=== PATIENT | female | born 1975 | race Caucasian/White ===

== ENCOUNTER 2017-09-12 14:31 | Emergency (ER) | payer MEDICAID ==
[2017-09-12] MEDS ORDERED: ONDANSETRON 4 MG ODT TABLET SL ONE (14:49)
[2017-09-12] MEDS ORDERED: SUCRALFATE 1 G/10 ML UD PO ONE (14:51)
--- NOTE | 2017-09-12 14:53 | Emergency Department Record ---
History of Present Illness - General Chief complaint: Nausea, Vomiting, Diarrhea Stated complaint: NAUSEA Time Seen by Provider: 09/12/17 14:41 Source: Patient Mode of Arrival: Ambulatory Limitations: No limitations - History of Present Illness Initial comments: The patient states she is here due to a 2 week hx of intermittent nausea, heartburn and abdominal bloating. She denies any pain or any discomfort but she feels like she was . The patient has had her fallopian tubes removed in the past but still has her ovaries and uterus. The patient is basically concerned that she may be . There is no reported CP, SOB, sweating or vomiting. Sometimes food does make the heartburn worse. There is no hx of CONNOR or CP with exertion. MD complaint: Nausea Onset/Timin -: Week(s) Severity: Moderate Severity scale (1-10): 1 Quality: Aching Consistency: Constant - Related Data Home Medications Medication Instructions Recorded Confirmed Last Taken Buspirone HCl [Buspar] 15 mg PO BID 09/12/17 09/12/17 1 Day Ago ~09/11/17 Cetirizine HCl 10 mg PO DAILY 09/12/17 09/12/17 1 Day Ago ~09/11/17 Lisinopril [Prinivil] 10 mg PO DAILY 09/12/17 09/12/17 1 Day Ago ~09/11/17 Vortioxetine Hydrobromide 10 mg PO DAILY 09/12/17 09/12/17 1 Day Ago [Brintellix] ~09/11/17 Previous Rx's Medication Instructions Recorded Omeprazole [Prilosec] 20 mg PO DAILY #30 09/12/17 Allergies Allergy/AdvReac Type Severity Reaction Status Date / Time No Known Drug Allergies Allergy Verified 09/12/17 16:18 Travel Screening - Travel/Exposure Within Last 30 Days Have you traveled within the last 30 days?: No - Travel/Exposure Within Last Year Have you traveled outside the [place] in the last year?: No - Additonal Travel Details Have you been exposed to anyone with a communicable illness?: No - Travel Symptoms Symptom Screening: None Review of Systems Constitutional: Denies: Chills, Fever Past Medical History - SOCIAL HISTORY Smoking Status: Current every day smoker Alcohol Use: None Drug Use: None - RESPIRATORY Hx Respiratory Disorders: No - CARDIOVASCULAR Hx Cardio Disorders: Yes Hx Hypertension: Yes ( induced) - NEURO Hx Neuro Disorders: No - GI Hx GI Disorders: No - Hx Genitourinary Disorders: No - ENDOCRINE Hx Endocrine Disorders: No - MUSCULOSKELETAL Hx Musculoskeletal Disorders: Yes Comment:: R knee pain - PSYCH Hx Psych Problems: Yes Hx Anxiety: Yes Comment:: mood problems - HEMATOLOGY/ONCOLOGY Hx Hematology/Oncology Disorders: No Family Medical History Any Significant Family History?: Yes Family Hx Comment (NOT TO BE USED IN PLACE OF ITEMS BELOW): Grandfather-Janki 's. Aunt w/MS Hx Cancer: Father Hx HTN: Father, Mother Hx Resp Disorders: Grandparents Physical Exam - General General Appearance: Alert, Oriented x3, Cooperative, No acute distress - Head Head exam: Atraumatic, Normocephalic, Normal inspection - Eye Eye exam: Normal appearance, PERRL - Neck Neck exam: Normal inspection, Full ROM. negative: Tenderness - Respiratory Respiratory exam: Normal lung sounds bilaterally. negative: Respiratory distress - Cardiovascular Cardiovascular Exam: Regular rate, Normal rhythm, Normal heart sounds - GI/Abdominal GI/Abdominal exam: Soft, Normal bowel sounds. negative: Distended, Rebound, Rigid, Tenderness - Extremities Extremities exam: Normal inspection, Full ROM, Normal capillary refill. negative: Tenderness - Neurological Neurological exam: Alert. negative: Motor sensory deficit Course Vital Signs 09/12/17 14:33 Temperature 97.7 F Pulse Rate 89 Respiratory 18 Rate Blood Pressure 168/85 Pulse Ox 98 - Reevaluation(s) Reevaluation #1: The patient is doing a lot better after the GI cocktail. It completely took her heartburn away. She feels much better and is relieved that she is not . 09/12/17 16:17 Reevaluation #2: The patient is doing very well. I did put a consult in for the GI Specialty clinic and will place the patient on [facility]. 09/12/17 16:43 Medical Decision Making - Data Complexity MDM Data: Labs Ordered and/or Reviewed, EKG Ordered and/or Reviewed - Lab Data Result diagrams: 09/12/17 15:00 09/12/17 15:00 - EKG Data -: EKG Interpreted by Me EKG: No Acute Changes, Normal EKG Disposition Disposition: Discharge Clinical Impression: GERD (gastroesophageal reflux disease) Qualifiers: Esophagitis presence: esophagitis presence not specified Qualified Code(s): K21.9 - Gastro-esophageal reflux disease without esophagitis Disposition: Home, Self-Care Condition: (2) Stable Instructions: Acute Nausea and Vomiting (ED) Additional Instructions: Please take the Prilosec as directed and follow up with the GI clinic when possible. Please also see your family doctor if not better in 3 days. Return to the ER for any worsening symptoms. Prescriptions: Omeprazole [Prilosec] 20 mg PO DAILY #30 cap. Referrals: [facility] Special[facility] [Provider Group] Forms: Patient Portal Access Time of Disposition: 16:42 Quality - Quality Measures Quality Measures: N/A - Blood Pressure Screening View Details: Yes Does Patient Have Any of the Following: No Blood Pressure Classification: Pre-Hypertensive BP Reading Systolic Measurement: 168 Diastolic Measurement: 85 Screening for High Blood Pressure: < Pre-Hypertensive BP, F/U Documented > [ G8950] Pre-Hypertensive Follow-up Interventions: Referral to alternative/primary care provider.
[2017-09-12 15:03] LABS: BASO % 0.2 % (0-6); EOS % 0.3 % (0-6); GRAN % 72.4 % (47-80); HEMATOCRIT 49.8 % (35.0-47.0); HEMOGLOBIN 16.9 gm/dl (11.6-16.0); LYMPH % 20.3 % (16-45); MEAN CELL VOLUME 94.9 fl (81-97); MEAN CORPUSCULAR HGB CONC 33.9 g/dl (32-36); MEAN PLATELET VOLUME 9.9 fl (7.4-10.4); MONO % 6.8 % (0-9); PLATELET COUNT 302 K/uL (130-400); RED BLOOD COUNT 5.25 M/uL (3.80-5.40); RED CELL DISTRIBUTION WIDTH 14.4 % (11.5-14.5); WHITE BLOOD COUNT W/O DIFF 13.8 K/uL (4.2-12.2)
[2017-09-12 15:15] LABS: BLOOD UREA NITROGEN 14 mg/dL (6-20); CREATININE 0.7 mg/dL (0.5-0.9); EST GLOMERULAR FILTRATION RATE > 60 mL/min; MEAN CORPUSCULAR HEMOGLOBIN 32.1 pg (27-33)
[2017-09-12 15:16] LABS: TOTAL PROTEIN 8.1 g/dL (6.6-8.7)
[2017-09-12 15:18] LABS: GLUCOSE,RANDOM 116 mg/dL (74-109)
[2017-09-12 15:20] LABS: ALT/SGPT 32 U/L (<33); AST/SGOT 26 U/L (10.0-35.0)
[2017-09-12 15:21] LABS: ALB/GLOB RATIO 1.2 (1.1-1.8); ALBUMIN 4.4 g/dL (4.0-5.0); ALKALINE PHOSPHATASE 104 U/L (35-104)
[2017-09-12] MEDS ORDERED: MAGNESIUM HYDROXIDE/AL HYDROX 30 ML, LIDOCAINE VISC 2% 200 MG PO ONE ×2 (15:52)
== END 2017-09-12 16:47 | disposition home or self-care (01) ==
LOC: ER 14:31
DX: K21.9 Gastro-esophageal reflux disease without esophagitis (principal); R14.0 Abdominal distension (gaseous); R11.2 Nausea with vomiting, unspecified; R19.7 Diarrhea, unspecified; F17.210 Nicotine dependence, cigarettes, uncomplicated
CPT/HCPCS: 80053; 84484; 84703; 85025; 93005; 93010; 99284

== ENCOUNTER 2017-10-13 13:20 | Emergency (ER) | payer MEDICAID ==
--- NOTE | 2017-10-13 13:49 | Emergency Department Record ---
History of Present Illness - General Chief complaint: Eye Problem Stated complaint: BUBBLE ON L EYE Time Seen by Provider: 10/13/17 13:37 Source: Patient Mode of Arrival: Ambulatory Limitations: No limitations - History of Present Illness Initial comments: 42 yo female presents with left eye clear bubble that she has noted for about a week. The patient denies any changes in vision. She does not wear any contacts or glasses. No redness, drainage, pus, tearing. The area of concern is the later left eye. She does take allergy medication for seasonal allergies. Onset/Timin -: Days(s) Onset Description: Gradual Location: Left eye Place: Home If Injury: None Eye Symptoms: Pain Severity scale (1-10): 8 If Pain, Quality: Aching Consistency: Constant Associated Symptoms: None Treatments Prior to Arrival: None - Related Data Previous Rx's Medication Instructions Recorded Omeprazole [Prilosec] 20 mg PO DAILY #30 mireya. 09/12/17 Naphazoline HCl/Pheniramine 15 ml OP Q6H #1 drops 10/13/17 [Naphcon-A Eye Drops] Allergies Allergy/AdvReac Type Severity Reaction Status Date / Time No Known Drug Allergies Allergy Verified 09/12/17 16:18 Travel Screening - Travel/Exposure Within Last 30 Days Have you traveled within the last 30 days?: No Review of Systems Constitutional: Denies: Chills, Fever, Malaise, Weakness Eyes: Reports: Other (cyst). Denies: Eye discharge, Eye pain, Photophobia, Vision change ENT: Denies: Congestion, Throat pain Respiratory: Denies: Cough Cardiovascular: Denies: Chest pain, Syncope Endocrine: Denies: Fatigue Gastrointestinal: Denies: Abdominal pain, Diarrhea, Nausea, Vomiting Genitourinary: Denies: Dysuria Musculoskeletal: Denies: Arthralgia, Back pain, Myalgia Skin: Denies: Bruising, Change in color, Rash Neurological: Denies: Headache, Numbness, Weakness Psychiatric: Denies: Anxiety Hematological/Lymphatic: Denies: Easy bleeding, Easy bruising, Swollen glands Past Medical History - SOCIAL HISTORY Smoking Status: Current every day smoker Alcohol Use: None Drug Use: None - RESPIRATORY Hx Respiratory Disorders: No - CARDIOVASCULAR Hx Cardio Disorders: Yes Hx Hypertension: Yes ( induced) - NEURO Hx Neuro Disorders: No - GI Hx GI Disorders: No - Hx Genitourinary Disorders: No - ENDOCRINE Hx Endocrine Disorders: No - MUSCULOSKELETAL Hx Musculoskeletal Disorders: Yes Comment:: R knee pain - PSYCH Hx Psych Problems: Yes Hx Anxiety: Yes Comment:: mood problems - HEMATOLOGY/ONCOLOGY Hx Hematology/Oncology Disorders: No Family Medical History Any Significant Family History?: Yes Family Hx Comment (NOT TO BE USED IN PLACE OF ITEMS BELOW): Grandfather-Janki 'lee ann. Aunt w/MS Hx Cancer: Father Hx HTN: Father, Mother Hx Resp Disorders: Grandparents Physical Exam - General General Appearance: Alert, Oriented x3, Cooperative, No acute distress Limitations: No limitations - Head Head exam: Normal inspection - Eye Eye exam: Normal appearance, PERRL, EOMI. negative: Conjunctival injection, Periorbital swelling, Periorbital tenderness, Scleral icterus Pupils: Normal accommodation, Other (small approximately 1-2mm clear cyst like structure, no redness, pus, are blood, no FB). negative: Irregular, Unequal - ENT ENT exam: Normal exam Ear exam: Normal external inspection Nasal Exam: Normal inspection Mouth exam: Normal external inspection Teeth exam: Normal inspection Course Vital Signs 10/13/17 13:35 Temperature 98.0 F Pulse Rate [ 104 H Pulse Ox Probe] Respiratory 18 Rate Blood Pressure 150/90 [Left Arm] Pulse Ox 97 - Reevaluation(s) Reevaluation #1: Slit lamp was performed No biostain uptake There is a small clear cyst like structure on the left lateral conjunctiva No pus No hemorrhage Normal AC that is clear. No hyphema Examination is likely a conjunctival cyst Disposition Disposition: Discharge Clinical Impression: Conjunctival cyst of left eye Disposition: Home, Self-Care Condition: (1) Good Instructions: Eye Pain (ED) Additional Instructions: Call the number provided for a follow up eye examination for the conjuctival cyst on the surface of your left eye Return if worse, fever, red, pus, drainage or vision changes. Prescriptions: Naphazoline HCl/Pheniramine [Naphcon-A Eye Drops] 15 ml OP Q6H #1 drops Referrals: NIXON PHILLIPS [MEDICAL DOCTOR] - [facility] Special[facility] [Provider Group] Forms: Patient Portal Access Time of Disposition: 13:54 Quality - Quality Measures Quality Measures: N/A - Blood Pressure Screening Does Patient Have Any of the Following: Active Dx of HTN Blood Pressure Classification: Hypertensive Reading Systolic Measurement: 150 Diastolic Measurement: 90 Screening for High Blood Pressure: Patient Exclusion, Hx of HTN [G9724]
== END 2017-10-13 14:18 | disposition home or self-care (01) ==
LOC: ER 13:20
DX: H11.442 Conjunctival cysts, left eye (principal); F17.210 Nicotine dependence, cigarettes, uncomplicated
CPT/HCPCS: 99283

== ENCOUNTER 2017-10-19 20:41 | Emergency (ER) | payer MEDICAID ==
--- NOTE | 2017-10-19 21:15 | Emergency Department Record ---
History of Present Illness - General Chief complaint: Eye Problem Stated complaint: CYST LT EYE Time Seen by Provider: 10/19/17 20:58 Source: Patient Mode of Arrival: Ambulatory Limitations: No limitations - History of Present Illness Initial comments: pt was seen in ed for cyst on eye and was sent to opthamologist who popped 3 cysts. now she has another. she has an appt 11/25 with opthamologist chief complaint: Other -: Days(s) Onset Description: Gradual Location: Left eye If Injury: None Eye Symptoms: Burning, Blurry vision Severity scale (1-10): 6 If Pain, Quality: Burning Consistency: Constant Associated Symptoms: None Treatments Prior to Arrival: Other - Related Data Visual acuity (L) = 20/: 70 Visual acuity (R) = 20/: 50 With correction: No Previous Rx's Medication Instructions Recorded Omeprazole [Prilosec] 20 mg PO DAILY #30 09/12/17 Naphazoline HCl/Pheniramine 15 ml OP Q6H #1 drops 10/13/17 [Naphcon-A Eye Drops] Allergies Allergy/AdvReac Type Severity Reaction Status Date / Time No Known Drug Allergies Allergy Verified 09/12/17 16:18 Travel Screening - Travel/Exposure Within Last 30 Days Have you traveled within the last 30 days?: No - Travel Symptoms Symptom Screening: None Review of Systems Reviewed: No additional complaints except as noted below Constitutional: Reports: As per HPI. Denies: Chills, Fever, Malaise, Night sweats, Weakness, Weight change Eyes: Reports: As per HPI. Denies: Eye discharge, Eye pain, Photophobia, Vision change ENT: Reports: As per HPI. Denies: Congestion, Dental pain, Ear pain, Epistaxis , Hearing loss, Throat pain Respiratory: Reports: As per HPI. Denies: Cough, Dyspnea, Hemoptysis, Stridor, Wheezes Cardiovascular: Reports: As per HPI. Denies: Arrhythmia, Chest pain, Dyspnea on exertion, Edema, Murmurs, Orthopnea, Palpitations, Paroxysmal nocturnal dyspnea, Rheumatic Fever, Syncope Endocrine: Reports: As per HPI. Denies: Fatigue, Heat or cold intolerance, Polydipsia, Polyuria Gastrointestinal: Reports: As per HPI. Denies: Abdominal pain, Constipation, Diarrhea, Hematemesis, Hematochezia, Melena, Nausea, Vomiting Genitourinary: Reports: As per HPI. Denies: Abnormal menses, Discharge, Dyspareunia, Dysuria, Frequency, Hematuria, Incontinence, Retention, Urgency Musculoskeletal: Reports: As per HPI. Denies: Arthralgia, Back pain, Gout, Joint swelling, Myalgia, Neck pain Skin: Reports: As per HPI. Denies: Bruising, Change in color, Change in hair/ nails, Lesions, Pruritus, Rash Neurological: Reports: As per HPI. Denies: Abnormal gait, Confusion, Headache, Numbness, Paresthesias, Seizure, Tingling, Tremors, Vertigo, Weakness Psychiatric: Reports: As per HPI. Denies: Anxiety, Auditory hallucinations, Depression, Homicidal thoughts, Suicidal thoughts, Visual hallucinations Hematological/Lymphatic: Reports: As per HPI. Denies: Anemia, Blood Clots, Easy bleeding, Easy bruising, Swollen glands Past Medical History - SOCIAL HISTORY Smoking Status: Current every day smoker - RESPIRATORY Hx Respiratory Disorders: No - CARDIOVASCULAR Hx Cardio Disorders: Yes Hx Hypertension: Yes ( induced) - NEURO Hx Neuro Disorders: No - GI Hx GI Disorders: No - Hx Genitourinary Disorders: No - ENDOCRINE Hx Endocrine Disorders: No - MUSCULOSKELETAL Hx Musculoskeletal Disorders: Yes Comment:: R knee pain - PSYCH Hx Psych Problems: Yes Hx Anxiety: Yes Comment:: mood problems - HEMATOLOGY/ONCOLOGY Hx Hematology/Oncology Disorders: No Family Medical History Any Significant Family History?: Yes Family Hx Comment (NOT TO BE USED IN PLACE OF ITEMS BELOW): Grandfather-Janki 's. Aunt w/MS Hx Cancer: Father Hx HTN: Father, Mother Hx Resp Disorders: Grandparents Physical Exam - General General Appearance: Alert, Oriented x3, Cooperative, No acute distress - Head Head exam: Normal inspection - Eye Eye exam: Normal appearance, PERRL, EOMI, Other (tiny cyst l lateral conjunctiva ) Pupils: Normal accommodation With correction: No - ENT ENT exam: Normal exam, Mucous membranes moist, Normal external ear exam, Normal orophraynx Ear exam: Normal external inspection. negative: External canal tenderness Nasal Exam: Normal inspection. negative: Discharge, Sinus tenderness Mouth exam: Normal external inspection, Tongue normal Teeth exam: Normal inspection. negative: Dental caries Throat exam: Normal inspection. negative: Tonsillar erythema, Tonsillar exudate - Neck Neck exam: Normal inspection, Full ROM. negative: Tenderness - Respiratory Respiratory exam: Normal lung sounds bilaterally. negative: Respiratory distress - Cardiovascular Cardiovascular Exam: Regular rate, Normal rhythm, Normal heart sounds - GI/Abdominal GI/Abdominal exam: Soft, Normal bowel sounds. negative: Tenderness - Rectal Rectal exam: Deferred - exam: Deferred - Extremities Extremities exam: Normal inspection, Full ROM, Normal capillary refill. negative: Tenderness - Back Back exam: Reports: Normal inspection, Full ROM. Denies: Muscle spasm, Rash noted, Tenderness - Neurological Neurological exam: Alert, CN II-XII intact, Normal gait, Oriented X3 - Psychiatric Psychiatric exam: Normal affect, Normal mood - Skin Skin exam: Dry, Intact, Normal color, Warm Course Vital Signs 10/19/17 20:49 Temperature 97.7 F Pulse Rate [ 103 H Pulse Ox Probe] Respiratory 24 Rate Blood Pressure 142/70 [Left Arm] Pulse Ox 99 - Reevaluation(s) Reevaluation #1: 10/19/17 21:19 it was explained to pt that we do not pop cysts on eyes in the ed. she was given names of ophthamologists that accept her insurance and advised to get in with them Disposition Disposition: Discharge Clinical Impression: Conjunctival cyst Qualifiers: Laterality: left Qualified Code(s): H11.442 - Conjunctival cysts, left eye Disposition: Home, Self-Care Condition: (1) Good Instructions: Eye Pain (ED) Additional Instructions: follow up with ophthamologist. call to get in sooner. continue current drops. return sooner if worse. Forms: Patient Portal Access Quality - Quality Measures Quality Measures: N/A - Blood Pressure Screening Does Patient Have Any of the Following: No Blood Pressure Classification: Hypertensive Reading Systolic Measurement: 142 Diastolic Measurement: 70 Screening for High Blood Pressure: < First Hypertensive BP, F/U Documented > [ G8950] First Hypertensive Follow-up Interventions: Follow-up with rescreen GT 1 day and LT 4 weeks.
== END 2017-10-19 21:34 | disposition home or self-care (01) ==
LOC: ER 20:41
DX: H11.442 Conjunctival cysts, left eye (principal); I10 Essential (primary) hypertension; F17.210 Nicotine dependence, cigarettes, uncomplicated
CPT/HCPCS: 99282

== ENCOUNTER 2017-11-07 13:59 | Emergency (ER) | payer MEDICAID ==
--- NOTE | 2017-11-07 14:25 | Emergency Department Record ---
History of Present Illness - General Chief complaint: ENT Stated complaint: SORE THROAT AND EAR PAIN Time Seen by Provider: 11/07/17 14:14 Source: Patient Mode of Arrival: Ambulatory Limitations: No limitations - History of Present Illness Initial comments: The patient is here due to a "raw" sore throat for a day and a half. She also has had nasal congestion and head congestion. The patient does have a mild cough but no SOB, SHYAM, MILTON, CP, or fever. MD complaint: Sore throat Onset/Timin -: Days(s) Location: Throat Severity: Moderate Severity scale (1-10): 8 Improves with: Pressure Worsens with: Swallowing Associated Symptoms: Other - Related Data Previous Rx's Medication Instructions Recorded Omeprazole [Prilosec] 20 mg PO DAILY #30 cap. 09/12/17 Naphazoline HCl/Pheniramine 15 ml OP Q6H #1 drops 10/13/17 [Naphcon-A Eye Drops] Benzonatate [Tessalon] 1 cap PO Q8H PRN #20 cap 11/07/17 Prednisone [Prednisone 20Mg] 40 mg PO DAILY #10 tab 11/07/17 Allergies Allergy/AdvReac Type Severity Reaction Status Date / Time No Known Drug Allergies Allergy Verified 11/07/17 14:19 Travel Screening - Travel/Exposure Within Last 30 Days Have you traveled within the last 30 days?: No - Travel/Exposure Within Last Year Have you traveled outside the [place] in the last year?: No - Additonal Travel Details Have you been exposed to anyone with a communicable illness?: No - Travel Symptoms Symptom Screening: Joint & Muscle Aches Review of Systems Constitutional: Reports: Malaise. Denies: Chills, Fever Eyes: Denies: Eye discharge ENT: Reports: Congestion, Throat pain Respiratory: Reports: Cough. Denies: Dyspnea Past Medical History - SOCIAL HISTORY Smoking Status: Current every day smoker Alcohol Use: None Drug Use: None - RESPIRATORY Hx Respiratory Disorders: No - CARDIOVASCULAR Hx Cardio Disorders: Yes Hx Hypertension: Yes ( induced) - NEURO Hx Neuro Disorders: No - GI Hx GI Disorders: No - Hx Genitourinary Disorders: No - ENDOCRINE Hx Endocrine Disorders: No - MUSCULOSKELETAL Hx Musculoskeletal Disorders: Yes Comment:: R knee pain - PSYCH Hx Psych Problems: Yes Hx Anxiety: Yes Comment:: mood problems - HEMATOLOGY/ONCOLOGY Hx Hematology/Oncology Disorders: No Family Medical History Any Significant Family History?: No Family Hx Comment (NOT TO BE USED IN PLACE OF ITEMS BELOW): Grandfather-Janki 's. Aunt w/MS Hx Cancer: Father Hx HTN: Father, Mother Hx Resp Disorders: Grandparents Physical Exam - General General Appearance: Alert, Oriented x3, Cooperative, No acute distress - Head Head exam: Atraumatic, Normocephalic, Normal inspection - Eye Eye exam: Normal appearance, PERRL, EOMI - ENT ENT exam: TM's normal bilaterally. negative: Normal exam, Normal orophraynx Nasal Exam: Normal inspection. negative: Discharge, Sinus tenderness Throat exam: Tonsillar erythema (mild.). negative: Normal inspection, Tonsillomegaly, Tonsillar exudate, R peritonsillar mass, L peritonsillar mass - Neck Neck exam: Normal inspection, Full ROM. negative: Lymphadenopathy, Meningismus , Tenderness - Respiratory Respiratory exam: Normal lung sounds bilaterally. negative: Respiratory distress - Cardiovascular Cardiovascular Exam: Regular rate, Normal rhythm, Normal heart sounds - GI/Abdominal GI/Abdominal exam: Soft, Normal bowel sounds. negative: Tenderness - Extremities Extremities exam: Normal inspection, Full ROM, Normal capillary refill. negative: Tenderness Course Vital Signs 11/07/17 14:08 Temperature 98.2 F Pulse Rate 117 H Respiratory 18 Rate Blood Pressure 178/79 Pulse Ox 94 L - Reevaluation(s) Reevaluation #1: The patient is doing well at this time. She is resting comfortably and presently not coughing and has no SOB. I did repeat her HR and RA biox and they were 108 with a biox of 98%. We will place the patient on Prednisone and Tessalon and have her F/U with her PCP next week. 11/07/17 14:58 Medical Decision Making - Data Complexity MDM Data: Labs Ordered and/or Reviewed (Strep: Neg), X-Ray Ordered and/or Reviewed - Radiology Data Radiology results: Report reviewed (CXR: Neg.) Disposition Disposition: Discharge Clinical Impression: URI with cough and congestion Disposition: Home, Self-Care Condition: (2) Stable Instructions: Viral Syndrome (ED) Additional Instructions: The patient is to take Tessalon for the cough and start the Prednisone. She is to see her family doctor for recheck next week. She also is to return to the ER for any worsening symptoms. Prescriptions: Benzonatate [Tessalon] 1 cap PO Q8H PRN #20 cap PRN Reason: Cough Prednisone [Prednisone 20Mg] 40 mg PO DAILY #10 tab Forms: Patient Portal Access Time of Disposition: 15:01 Quality - Quality Measures Quality Measures: N/A - Blood Pressure Screening View Details: Yes Does Patient Have Any of the Following: No Blood Pressure Classification: Hypertensive Reading Systolic Measurement: 178 Diastolic Measurement: 79 Screening for High Blood Pressure: < First Hypertensive BP, F/U Documented > [ G8950] First Hypertensive Follow-up Interventions: Referral to alternative/primary care provider.
[2017-11-07] MEDS ORDERED: ACETAMINOPHEN 325 MG TAB PO ONE (14:29)
--- NOTE | 2017-11-08 21:06 | RADIOLOGY REPORT ---
EXAM: CHEST 2 VIEWS HISTORY: CHEST PAIN. TECHNIQUE: Frontal and lateral views of the chest. COMPARISON: None. FINDINGS: The heart size is normal. The lungs are clear. No pneumothorax. IMPRESSION: NEGATIVE CHEST. JOB NUMBER: [id number] MTDD
== END 2017-11-07 15:16 | disposition home or self-care (01) ==
LOC: ER 13:59
DX: J06.9 Acute upper respiratory infection, unspecified (principal); R05 Cough; R07.9 Chest pain, unspecified; F17.210 Nicotine dependence, cigarettes, uncomplicated
CPT/HCPCS: 71046; 87880; 99283

== ENCOUNTER 2019-04-19 11:05 | Emergency (ER) | payer MEDICAID ==
--- NOTE | 2019-04-19 11:32 | Emergency Department Record ---
History of Present Illness - General Chief Complaint: Dizziness Stated Complaint: LIGHTHEADED WHEN I STAND UP. Time Seen by Provider: 04/19/19 11:22 Source: Patient Mode of Arrival: Ambulatory Limitations: No limitations - History of Present Illness Initial Comments: Pt to the ED with her with a history of 2 weeks of episodes of feeling "light headed" associated with change in position from seated to standing. Never occurs when seated or laying down. Pt states she initially had episodes ever few days but now is having them daily. She describes the events "as i stand to get out of my car I feel light headed and my hearing kind of buzzes and I get a metal taste in my mouth. No change in my vision and no racing heart." Pt states it will last a minute or so then she feels "fine". No Headache associated. No palpitations, no change in meds for BP. No hx of DM. No recent illness with N/V/D and has tubal ligation. Pt is a smoker but denies alcohol or drug use. She is employed and denies excessive or new work/family stress. Pt is without symptoms at this time. - Related Data Allergies Allergy/AdvReac Type Severity Reaction Status Date / Time No Known Drug Allergies Allergy Unverified 04/08/19 18:53 Review of Systems Constitutional: Denies: Chills, Fever, Night sweats Eyes: Denies: Eye discharge, Eye pain, Photophobia, Vision change ENT: Reports: Other (hearing 'buzz" during events). Denies: Congestion, Ear pain, Throat pain Respiratory: Denies: Cough, Dyspnea Cardiovascular: Denies: Arrhythmia, Chest pain, Palpitations, Syncope Endocrine: Denies: Fatigue, Polydipsia, Polyuria Gastrointestinal: Denies: Abdominal pain, Diarrhea, Nausea, Vomiting Genitourinary: Denies: Abnormal menses Musculoskeletal: Denies: Arthralgia, Back pain Skin: Denies: Bruising, Rash Neurological: Reports: Weakness. Denies: Confusion, Headache, Numbness, Paresthesias, Seizure Psychiatric: Denies: Anxiety, Auditory hallucinations, Depression, Suicidal thoughts, Visual hallucinations Hematological/Lymphatic: Denies: Anemia Past Medical History - SOCIAL HISTORY Smoking Status: Current every day smoker Drug Use: None - RESPIRATORY Hx Respiratory Disorders: No - CARDIOVASCULAR Hx Cardio Disorders: Yes Hx Hypertension: Yes ( induced) - NEURO Hx Neuro Disorders: No - GI Hx GI Disorders: No - Hx Genitourinary Disorders: No - ENDOCRINE Hx Endocrine Disorders: No - MUSCULOSKELETAL Hx Musculoskeletal Disorders: Yes Comment:: R knee pain - PSYCH Hx Psych Problems: Yes Hx Anxiety: Yes Comment:: mood problems - HEMATOLOGY/ONCOLOGY Hx Hematology/Oncology Disorders: No Family Medical History Family Hx Comment (NOT TO BE USED IN PLACE OF ITEMS BELOW): Grandfather- Janki's. Aunt w/MS Hx Cancer: Father Hx HTN: Father, Mother Hx Resp Disorders: Grandparents Physical Exam - General General Appearance: Alert, Oriented x3, Cooperative, No acute distress - Head Head exam: Normal inspection - Eye Eye exam: Normal appearance, PERRL, EOMI. negative: Nystagmus - ENT ENT exam: Mucous membranes moist, TM's normal bilaterally (old scaring TMs BL. ) Ear exam: Normal external inspection Nasal Exam: Normal inspection Mouth exam: Normal external inspection Throat exam: Normal inspection - Neck Neck exam: Normal inspection, Full ROM. negative: Lymphadenopathy, Tenderness - Respiratory Respiratory exam: Normal lung sounds bilaterally. negative: Respiratory distress, Rhonchi, Wheezes - Cardiovascular Cardiovascular Exam: Regular rate, Normal rhythm, Tachycardia. negative: Felicitas stolic murmur, Irregular rhythm, Systolic murmur Peripheral Pulses: 2+: Radial (R), Radial (L) - GI/Abdominal GI/Abdominal exam: Soft, Normal bowel sounds. negative: Rebound, Tenderness - Extremities Extremities exam: Normal inspection, Full ROM. negative: Calf tenderness, Joint swelling, Pedal edema, Tenderness - Back Back exam: Reports: Normal inspection. Denies: Paraspinal tenderness - Neurological Neurological exam: Alert, CN II-XII intact, Normal gait, Oriented X3, Reflexes normal. negative: Motor sensory deficit - Psychiatric Psychiatric exam: Normal affect, Normal mood - Skin Skin exam: Normal color. negative: Rash Course - Reevaluation(s) Reevaluation #1: 04/19/19 11:34 IV, Monitor, labs, CT, EKG ordered. Pt asymptomatic at presentation Reevaluation #2: 04/19/19 13:50 All testing normal. Sugar elevated with HBA1C at 5.5 Discussed with pt. To follow with Primary care here at [facility]. Pt agrees with plan. Medical Decision Making - Data Complexity MDM Data: X-Ray Ordered and/or Reviewed, EKG Ordered and/or Reviewed - Lab Data Result diagrams: 04/19/19 11:35 04/19/19 11:35 - EKG Data -: EKG Interpreted by Me EKG: Abnormal EKG (ST at 105) Disposition Disposition: Discharge Clinical Impression: Light-headed feeling, Hyperglycemia Disposition: Home, Self-Care Condition: (2) Stable Instructions: Dizziness (ED) Additional Instructions: Do not drive until seen by your family physician Rest. Good diet and fluids. See family doctor in 1-2 days Return to the ED as needed. Forms: Patient Portal Access Time of Disposition: 13:50 Quality - Quality Measures Quality Measures: N/A - Blood Pressure Screening Does Patient Have Any of the Following: No Blood Pressure Classification: Pre-Hypertensive BP Reading Systolic Measurement: 126 Diastolic Measurement: 85 Screening for High Blood Pressure: < Pre-Hypertensive BP, F/U Documented > [G8950] Pre-Hypertensive Follow-up Interventions: Follow-up with rescreen every year.
[2019-04-19 11:45] LABS: ABSOLUTE NEUTROPHIL COUNT 7.03; BASO % 0.4 % (0-6); EOS % 0.8 % (0-6); GRAN % 65.8 % (47-80); HEMATOCRIT 49.3 % (35.0-47.0); HEMOGLOBIN 16.4 gm/dl (11.6-16.0); LYMPH % 25.1 % (16-45); MEAN CELL VOLUME 95.4 fl (81-97); MEAN CORPUSCULAR HEMOGLOBIN 31.7 pg (27-33); MEAN CORPUSCULAR HGB CONC 33.3 g/dl (32-36); MEAN PLATELET VOLUME 10.3 fl (7.4-10.4); MONO % 7.9 % (0-9); PLATELET COUNT 257 K/uL (130-400); RED BLOOD COUNT 5.17 M/uL (3.80-5.40); RED CELL DISTRIBUTION WIDTH 14.8 % (11.5-14.5); WHITE BLOOD COUNT W/O DIFF 10.7 K/uL (4.2-12.2)
[2019-04-19 11:55] LABS: BLOOD UREA NITROGEN 12 mg/dL (6-20); CREATININE 0.6 mg/dL (0.5-0.9); EST GLOMERULAR FILTRATION RATE > 60 mL/min
[2019-04-19 11:56] LABS: TOTAL PROTEIN 7.5 g/dL (6.6-8.7)
[2019-04-19 11:58] LABS: GLUCOSE,RANDOM 156 mg/dL (74-109)
[2019-04-19 12:00] LABS: ALT/SGPT 34 U/L (<33); AST/SGOT 32 U/L (10.0-35.0)
[2019-04-19 12:01] LABS: ALB/GLOB RATIO 1.3 (1.1-1.8); ALBUMIN 4.3 g/dL (4.0-5.0); ALKALINE PHOSPHATASE 87 U/L (35-104)
[2019-04-19 12:11] LABS: THYROID STIMULATING HORMONE 0.97 uIU/mL (0.270-4.20)
[2019-04-19 13:41] LABS: AMPHETAMINE SCREEN URINE NOT DETECTED; BARBITURATE SCREEN URINE NOT DETECTED; BENZODIAZEPINE SCREEN URINE NOT DETECTED; COCAINE SCREEN URINE NOT DETECTED; METHADONE SCREEN URINE NOT DETECTED; METHAMPHETAMINE SCREEN NOT DETECTED; OPIATE SCREEN URINE NOT DETECTED; OXYCODONE SCREEN URINE NOT DETECTED; PHENCYCLIDINE SCREEN URINE NOT DETECTED; PROPOXYPHENE SCREEN URINE NOT DETECTED; THC SCREEN URINE NOT DETECTED; TRICYCLIC ANTIDEPRESSANT SCRN NOT DETECTED
--- NOTE | 2019-04-21 12:22 | RADIOLOGY REPORT ---
EXAM: CHEST, TWO VIEWS HISTORY: INTERMITTENT SYNCOPAL EPISODES FOR THREE MONTHS. TECHNIQUE: Two views of the chest were obtained. Comparison: Chest x-ray 11/07/17. FINDINGS: No consolidation, pneumothorax, or pleural effusions are identified. The heart appears normal in size. Good inspiratory effort is present. IMPRESSION: NO ACUTE CARDIOPULMONARY PROCESS IDENTIFIED. JOB NUMBER: [id number] MTDD
--- NOTE | 2019-04-21 12:26 | CT SCAN REPORT ---
EXAM: HEAD CT WITHOUT IV CONTRAST HISTORY: LIGHTHEADED, LOSS OF HEARING, INTERMITTENT SYNCOPAL EPISODES FOR THREE MONTHS. TECHNIQUE: CT of the head was conducted without IV contrast with reconstruction of coronal and sagittal planes. Comparison: No prior exams available for comparison. FINDINGS: No acute intracranial hemorrhage, midline shift, or mass effect identified. No suspicious extraaxial fluid collections. Well circumscribed hypodensity present involving the left basal ganglia is suggestive of Virchow- Sean space. No suspicious brain parenchymal atrophy or encephalomalacia. Delgado white matter interface is preserved, no suspicious areas of decreased attenuation. The osseous structures appear intact. The paranasal sinuses and mastoid air cells are well aerated. IMPRESSION: NO ACUTE INTRACRANIAL HEMORRHAGE, MIDLINE SHIFT, OR MASS EFFECT. JOB NUMBER: [id number] MTDD
== END 2019-04-19 14:15 | disposition home or self-care (01) ==
LOC: ER 11:05
DX: R42 Dizziness and giddiness (principal); R73.9 Hyperglycemia, unspecified; I10 Essential (primary) hypertension; F17.210 Nicotine dependence, cigarettes, uncomplicated
CPT/HCPCS: 70450; 71046; 80053; 80305; 83036; 84443; 84703; 85025; 93005; 93010; 99284